=== PATIENT | male | born 2000 | race Caucasian/White ===

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

== ENCOUNTER 2023-07-04 17:30 | Emergency (ER) | payer BC ==
[~2023-07-04] VITALS: Ht 180.3 cm; Wt 94.3 kg
[2023-07-04 17:30] VITALS: BP 148/82; TEMP 99; O2SAT 100
== END 2023-07-04 20:01 | disposition left against medical advice (07) ==
LOC: M ED 17:30
DX: Z53.21 Procedure and treatment not carried out due to patient leaving prior to being seen by health care provider (principal)